=== PATIENT | male | born 1955 | race Caucasian/White ===

== ENCOUNTER 2016-04-15 20:42 | Emergency (ER) | payer MEDICARE, OTHER ==
--- NOTE | 2016-04-15 22:20 | ED ---
Complex/Multi-Sys Presentation - HPI Summary HPI Summary: Pt presents w/ 1 week of acute onset fever and back pain. First fever was very high per pt - felt like it was 103/104 although he didn't have a thermometer - he had a sweat after this. The following days has felt like he's had a lower fever, but still a fever. Back pain is at the lower thoracic level and wraps around to the sides and front under the ribs - worse w/ deep breath. Denies segundo cough, congestion, ST, JAIN, change in vision. Reports he's had some intermittent dizziness since these sx started. Denies syncope, chest pain, shortness of breath, hemoptysis. Has had some intermittent nausea but no vomiting. Loose stool one day but normal again now. Denies ab pain, urinary pain /frequency/urgency. H/o UTI and this does not feel the same but states "I think I may have a kidney infection or pneumonia or something" - History Of Current Complaint Chief Complaint: EDBackInjuryPain Time Seen by Provider: 04/15/16 21:16 Hx Obtained From: Patient - Allergies/Home Medications Allergies/Adverse Reactions: Allergies Allergy/AdvReac Type Severity Reaction Status Date / Time Beta Adrenergic Blockers AdvReac Severe See Comment Verified 10/17/13 22:02 PMH/Surg Hx/FS Hx/Imm Hx Previously Healthy: Yes Endocrine/Hematology History: Denies: Hx Anticoagulant Therapy, Hx Blood Disorders, Hx Diabetes, Hx Systemic Lupus Erythematosus, Hx Anemia, Hx Coagulopothy Respiratory History: Reports: Hx Chronic Obstructive Pulmonary Disease (COPD) Denies: Hx Pneumonia GI History: Denies: Hx Cirrhosis, Hx Gall Bladder Disease, Hx Gastroesophageal Reflux Disease History: Denies: Hx Acute Renal Failure, Hx Chronic Renal Failure Musculoskeletal History: Denies: Hx Arthritis, Hx Back Problems Infectious Disease History: No Infectious Disease History: Denies: Traveled Outside the [place] in Last 30 Days - Family History Known Family History: Positive: Cardiac Disease - Social History Occupation: Unemployed Lives: Alone Alcohol Use: None Hx Substance Use: No Substance Use Type: Reports: None Smoking Status (MU): Current Every Day Smoker Amount Used/How Often: e-cig a few times a day Review of Systems Positive: Fever Negative: Sore Throat, Ear Ache, Nasal Discharge Cardiovascular: Negative Respiratory: Other - see HPI Positive: Nausea Positive: see HPI Musculoskeletal: Other - see HPI Negative: Rash, Bruising Neurological: Negative Psychological: Normal All Other Systems Reviewed And Are Negative: Yes Physical Exam Triage Information Reviewed: Yes Vital Signs On Initial Exam: Initial Vitals Temp Pulse Resp BP Pulse Ox 97.1 F 94 16 191/87 99 04/15/16 20:44 04/15/16 20:44 04/15/16 20:44 04/15/16 20:44 04/15/16 20:44 Vital Signs Reviewed: Yes Appearance: Positive: Well-Appearing, No Pain Distress, Obese Skin: Positive: Warm, Dry - no erythema, no ecchymosis, no lesions over affected area Head/Face: Positive: Normal Head/Face Inspection Eyes: Positive: Normal, EOMI, Conjunctiva Clear ENT: Positive: Hearing grossly normal, Pharynx normal, TMs normal Neck: Positive: Supple, Nontender Respiratory/Lung Sounds: Positive: Breath Sounds Present - speaking in full sentences, no tripodding, no retractions, Rhonchi, Wheezes. Negative: Rales, Subcutaneous Emphysema, Stridor, Tracheal Deviation Cardiovascular: Positive: Normal, RRR, S1, S2. Negative: Leg Edema Left, Leg Edema Right Abdomen Description: Positive: Nontender, Soft. Negative: CVA Tenderness (R), CVA Tenderness (L) Bowel Sounds: Positive: Present Musculoskeletal: Positive: Normal, Strength/ROM Intact - no pain w/ overhead reaching or resisted abduction of UE's Neurological: Positive: Normal, Sensory/Motor Intact, Alert, Oriented to Person Place, Time, CN Intact II-III Psychiatric: Positive: Normal Diagnostics - Vital Signs Vital Signs Temp Pulse Resp BP Pulse Ox 04/15/16 20:44 97.1 F 94 16 191/87 99 - Laboratory Result Diagrams: 04/15/16 22:32 04/15/16 22:32 Lab Statement: Any lab studies that have been ordered have been reviewed, and results considered in the medical decision making process. Re-Evaluation - Re-Evaluation First Eval Change: Improved - breath sounds improved - more clear s/p duoneb Complex Multi-Symp Course/Dx Course Of Treatment: Pt sx of lower back pain w/ rib involvement appear to be COPD exacerbation. He has been coughing for many days and is sore. His chest sounds and breathing sx improved s/p duoneb. His CXR is w/o acute findings and he is low risk for PE. D/c'd w/ education and tx as well as danger s/sx of when to return to ED. - Diagnoses Provider Diagnoses: COPD exacerbation Discharge - Discharge Plan Condition: Stable Disposition: HOME Prescriptions: Albuterol HFA INHALER* [Ventolin HFA Inhaler*] 2 puff INH Q6H PRN #1 mdi PRN Reason: Cough DOXYcycline CAP(*) [DOXYcycline 100MG CAP(*)] 100 mg PO BID #[id number] cap Patient Education Materials: Muscle Strain (ED), Acute Bronchitis (ED) Referrals: Pamela Rust MD [Primary Care Provider] - Additional Instructions: Keep appointment to follow-up with PCP next week. *If symptoms worsen, return to ED
[2016-04-15 22:50] LABS: Hemoglobin 18.4 g/dl (14.0-18.0); Mean Corpuscular HGB Conc 34 g/dl (31-36); Mean Corpuscular Hemoglobin 30 pg (27-31); Mean Corpuscular Volume 89 fL (80-94); Mean Platelet Volume 9 um3 (7.4-10.4); Red Blood Count 6.12 10^6/ul (4.0-5.4); Red Cell Distribution Width 14 % (10.5-15); White Blood Count 6.4 10^3/ul (3.5-10.8)
[2016-04-15 22:54] LABS: Urine Bacteria Absent (Absent); Urine Bilirubin Negative (Negative); Urine Glucose Negative (Negative); Urine Nitrite Negative (Negative)
[2016-04-15 23:01] LABS: Comments Flag Yes; Hematocrit 54 % (42-52)
[2016-04-15 23:05] LABS: Albumin 4.1 g/dL (3.2-5.2); BUN/Creatinine Ratio 26.1 (8-20); C Reactive Protein 1.73 mg/L (< 5.00); Calcium 9.8 mg/dL (8.6-10.3); EGFR African American 69.5 (>60); Globulin 3.3 g/dL (2-4); Total Bilirubin 0.4 mg/dL (0.2-1.0); Total Protein 7.4 g/dL (6.4-8.9)
--- NOTE | 2016-04-15 23:08 | RAD ---
Indication: Cough, back pain. Comparison is made with previous exam dated June 12, 2015 2 views of the chest including dual energy PA views demonstrates no mediastinal shift. Heart is of normal size and configuration. Left base atelectasis is noted. No evidence of alveolar consolidation is noted. IMPRESSION: No active cardiopulmonary disease is noted.
[2016-04-15] MEDS ORDERED: Albuterol/Ipratropium NEB.SOL* Albuterol 2.5 MG/Ipratropium 0.5 MG 3 ML INH ONE (23:50)
[2016-04-16] MEDS ORDERED: DOXYcycline CAP(*) 100 MG PO ONE (00:17)
[2016-04-16 00:27] VITALS: BP 123/81
== END 2016-04-16 00:28 | disposition home or self-care (01) ==
LOC: ED 20:42
DX: J44.1 Chronic obstructive pulmonary disease with (acute) exacerbation (principal); M54.9 Dorsalgia, unspecified; R50.9 Fever, unspecified; F17.210 Nicotine dependence, cigarettes, uncomplicated; R11.0 Nausea
CPT/HCPCS: 36415; 71020; 80053; 81003; 81015; 83605; 85025; 86140; 87086; 87502; 94640; 99282; A9270-GY

== ENCOUNTER 2017-06-08 15:51 | Emergency (ER) | payer MEDICARE ==
--- NOTE | 2017-06-08 16:43 | ED ---
Back Pain - HPI Summary HPI Summary: c/o left upper back pain x 5days. Pain described as intermittent, alternately sharp/ache, worse with inhalation, better with sitting up. Denies trauma, cp, sob, pain radiation, loss of sensation or function in left UE, fever, cough, sore throat, abdo pain. Cardiac hx = cardiac stents x 5 in 2009, one stress test since cath "5-6 yrs ago", weak compliance with htn meds, smoker. Med hx = copd, chf, hep c, htn, hdl. NO current anticoag. - History of Current Complaint Chief Complaint: EDBackInjuryPain Stated Complaint: UPPER BACK PAIN/DIFFICULTY BREATHING Time Seen by Provider: 06/08/17 16:19 Hx Obtained From: Patient Onset/Duration: Sudden Onset, Lasting Days Onset/Duration: Started Days Ago, Still Present Timing: Intermittent Back Pain Location: Is Discrete @ Severity Initially: Moderate Severity Currently: Mild Pain Intensity: 6 Pain Scale Used: 0-10 Numeric Character: Sharp, Dull, Aching Aggravating Symptom(s): Movement, Other - inhalation Alleviating Symptom(s): Position - Risk Factors AAA Risk Factors: Smoking, Hypertension, Atherosclerosis TAD Risk Factors: Smoking, Hypertension, CHF - Allergies/Home Medications Allergies/Adverse Reactions: Allergies Allergy/AdvReac Type Severity Reaction Status Date / Time MS Beta Adrenergic Blockers AdvReac Severe See Comment Verified 10/17/13 22:02 [Beta Adrenergic Blockers] PMH/Surg Hx/FS Hx/Imm Hx Endocrine/Hematology History: Reports: Hx Anticoagulant Therapy Cardiovascular History: Reports: Hx Congestive Heart Failure, Hx Coronary Artery Disease, Hx Hypercholesterolemia, Hx Hypertension, Hx Myocardial Infarction, Other Cardiovascular Problems/Disorders Respiratory History: Reports: Hx Chronic Obstructive Pulmonary Disease (COPD) Denies: Hx Pneumonia GI History: Denies: Hx Cirrhosis, Hx Gall Bladder Disease, Hx Gastroesophageal Reflux Disease History: Denies: Hx Acute Renal Failure, Hx Chronic Renal Failure Musculoskeletal History: Denies: Hx Arthritis, Hx Back Problems Infectious Disease History: No Infectious Disease History: Denies: Traveled Outside the [place] in Last 30 Days - Family History Known Family History: Positive: Cardiac Disease - Social History Alcohol Use: None Hx Substance Use: No Substance Use Type: Reports: None Smoking Status (MU): Current Every Day Smoker Amount Used/How Often: e-cig a few times a day Review of Systems Constitutional: Negative Eyes: Negative ENT: Negative Cardiovascular: Negative Respiratory: Negative Gastrointestinal: Negative Genitourinary: Negative Skin: Negative Neurological: Negative Psychological: Normal All Other Systems Reviewed And Are Negative: Yes Physical Exam - Summary Physical Exam Summary: left upper back non tender to palpation. no evidence of trauma. full ROM of left UE without pain. PMS intact left UE. neck supple. Triage Information Reviewed: Yes Vital Signs On Initial Exam: Initial Vitals Temp Pulse Resp BP Pulse Ox 97.7 F 88 16 208/90 97 06/08/17 15:57 06/08/17 15:57 06/08/17 15:57 06/08/17 15:57 06/08/17 15:57 Vital Signs Reviewed: Yes Appearance: Positive: Well-Appearing Skin: Positive: Warm Head/Face: Positive: Normal Head/Face Inspection Eyes: Positive: Normal ENT: Positive: Normal ENT inspection Respiratory/Lung Sounds: Positive: Clear to Auscultation Cardiovascular: Positive: Normal Abdomen Description: Positive: Nontender Neurological: Positive: Normal Psychiatric: Positive: Normal AVPU Assessment: Alert - Tate Coma Scale Best Eye Response: 4 - Spontaneous Best Motor Response: 6 - Obeys Commands Best Verbal Response: 5 - Oriented Coma Scale Total: 15 Diagnostics - Vital Signs Vital Signs Temp Pulse Resp BP Pulse Ox 06/08/17 15:57 97.7 F 88 16 208/90 97 - Laboratory Result Diagrams: 06/08/17 16:57 06/08/17 16:57 Lab Statement: Any lab studies that have been ordered have been reviewed, and results considered in the medical decision making process. - Radiology cxr Xray Interpretation: No Acute Changes Radiology Interpretation Completed By: Radiologist Back Pain Course/Dx - Course Course Of Treatment: pt advised of risks of mi, aortic dissection, pulmonary dz , . pt insisted upon leaving [facility] - Diagnoses Provider Diagnoses: Back pain, Hypertension Discharge - Sign-Out/Discharge Documenting (check all that apply): Discharge - [facility] - Discharge Plan Condition: Good Disposition: AGAINST MEDICAL ADVICE - Billing Disposition and Condition Condition: GOOD Disposition: [facility]
[2017-06-08 17:14] LABS: ABS Basophils 0.1 10^3/ul (0-0.2); ABS Eosinophils 0.4 10^3/ul (0-0.6); ABS Lymphocytes 1.4 10^3/ul (1.0-4.8); ABS Monocytes 0.7 10^3/ul (0-0.8); ABS Neutrophils 4.2 10^3/ul (1.5-7.7); ABS Nucleated RBC 0 10^3/ul; Eosinophil % 5.9 % (0-6); Hematocrit 51 % (42-52); Hemoglobin 17.9 g/dl (14.0-18.0); Lymphocyte % 20.9 % (25-47); Mean Corpuscular HGB Conc 35 g/dl (31-36); Mean Corpuscular Hemoglobin 31 pg (27-31); Mean Corpuscular Volume 88 fL (80-94); Mean Platelet Volume 7.8 um3 (7.4-10.4); Nucleated Red Blood Cells % 0.3; Platelet Count 191 10^3/ul (150-450); Red Cell Distribution Width 14 % (10.5-15); White Blood Count 6.8 10^3/ul (3.5-10.8)
--- NOTE | 2017-06-08 17:16 | RAD ---
INDICATION: Back pain, history of cardiac stents, noncompliance. COMPARISON: There are no prior studies available for comparison. TECHNIQUE: A portable view of the chest was obtained. FINDINGS: Cardiac contours appear within normal limits for this portable exam. The lungs are clear. No pleural effusion is seen. IMPRESSION: NO EVIDENCE FOR ACUTE DISEASE.
[2017-06-08 17:20] VITALS: BP 0/0
[2017-06-08 17:29] LABS: INR 0.95 (0.77-1.02)
[2017-06-08 17:40] LABS: EGFR Non-African American 51.6 (>60)
== END 2017-06-08 17:19 | disposition left against medical advice (07) ==
LOC: ED 15:51
DX: M54.9 Dorsalgia, unspecified (principal); I10 Essential (primary) hypertension; F17.210 Nicotine dependence, cigarettes, uncomplicated; R05 Cough; R50.9 Fever, unspecified
CPT/HCPCS: 36415; 71045; 80053; 83880; 84484; 85025; 85610; 85730; 93005; 99283

== ENCOUNTER 2018-06-25 16:08 | Emergency (ER) | payer MEDICARE, MEDICAID ==
[2018-06-25 16:14] VITALS: BP 139/90
== END 2018-06-25 18:12 | disposition left against medical advice (07) ==
LOC: ED 16:08
DX: Z53.21 Procedure and treatment not carried out due to patient leaving prior to being seen by health care provider (principal)
CPT/HCPCS: 93005